=== PATIENT | male | born 1945 | race Caucasian/White ===

== ENCOUNTER 2020-09-16 10:32 | Emergency (ER) | payer OTHER ==
[~2020-09-16] VITALS: Ht 167.6 cm; Wt 75.3 kg
[~2020-09-16 10:32] MED LIST: ASPIR-TRIN325 MG; ATENOLOL50 MG; FORTAMET500 MG; HYDROCHLOROTHIA25 MG; LIPITOR20 MG; PLAVIX75 MG; VASOTEC5 MG PO
[2020-09-16] MEDS ORDERED: PROTONIX40 MG PO (10:50)
== END 2020-09-16 12:24 | disposition home or self-care (01) ==
LOC: ER 10:32
DX: E11.628 Type 2 diabetes mellitus with other skin complications (principal); L02.412 Cutaneous abscess of left axilla; B95.61 Methicillin susceptible Staphylococcus aureus infection as the cause of diseases classified elsewhere; Z79.84 Long term (current) use of oral hypoglycemic drugs